=== PATIENT | female | born 1995 | race Caucasian/White ===

== ENCOUNTER 2025-04-03 15:49 | Emergency (ER) | payer BC ==
[~2025-04-03] VITALS: Ht 156.2 cm; Wt 89.5 kg
[2025-04-03 16:01] VITALS: BP 118/71; TEMP 98.4
--- NOTE | 2025-04-03 16:50 | Physician Documentation ---
History of Present Illness ~ Chief Complaint: Jaw Pain Stated Complaint: JAW PAIN Time Seen by MD: 17:58 HPI 30-year-old female presents with Tmj exacerbation. States she was seen by her ENT and prescribed Valium without much improvement. States for the last week she has had pain on the left side difficulty with range of motion. Medication Reconciliation Allergies: Coded Allergies: gabapentin (Unverified Allergy, Unknown, 04/03/25) ibuprofen (Unverified Allergy, Unknown, 04/03/25) meloxicam (Unverified Allergy, Unknown, 04/03/25) Review of Systems All Other Systems at this time: Reviewed and Negative ROS As stated above in the HPI, otherwise all systems are reviewed and negative. Physical Exam Vital Signs: Temperature: 98.4, Source: Temporal, Heart Rate: 88, Respiratory Rate: 18, BP: 118/71, Pulse Oximetry: 99, Weight: 89.500 Oxygen Flow Rate: 0 Physical Exam General: Alert, no apparent distress. HEENT: PERRL, EOMI, no injection, moist mucous membranes. Difficulty with range of motion of the jaw, moderate swelling Neck: Full range of motion. Neurologic: Oriented x4. Psychiatric: Normal mood and affect. Skin: Normal color, warm and dry. No edema, no ecchymosis. Progress Results/Orders Results/Orders Completed Orders - KAREN WU [employer]OUNT EXECUTIVE Morphine 4mg/Ml Inj. (Morphine Inj.) (04/03/25 18:15) Dexamethasone 6mg Tablet (Dexamethasone (04/03/25 18:16) Dexamethasone Tablet (Decadron Tablet) (04/03/25 18:16) Medications Received in ER Medications (Trade) Dose Ordered Sig/Jose Route PRN Reason Start Time Stop Time Status Last Admin Dose Admin (morphine inj.) 4 mg ONCE ONCE IM 04/03/25 18:15 04/03/25 18:17 DC 04/03/25 18:23 4 MG (Dexamethasone 6mg tablet) 6 mg ONCE STAT PO 04/03/25 18:16 04/03/25 18:17 DC 04/03/25 18:23 6 MG (Decadron tablet) 4 mg ONCE STAT PO 04/03/25 18:16 04/03/25 18:17 DC 04/03/25 18:23 4 MG Vital Signs 04/03/25 04/03/25 16:01 18:23 Temp 98.4 Pulse 88 Resp 18 16 B/P (MAP) 118/71 Pulse Ox 99 O2 Flow Rate 0 Medical Decision Making Findings treating pt With a corticosteroids and and pain med. advising patient to follow up with her ENT for further evaluation Differential Dx:Considerations: Include: Abrasion, Contusion, Cerebral contusion, Cervical spine injury, Closed head injury, Encephalopathy, Foreign b demetrius, Fracture, facial, Intoxication-alcohol, Intoxication-other drug, Laceration, Other Departure Disposition: HOME / SELF CARE / HOMELESS Impression: Primary Impression: Jaw pain Condition: Stable Additional Instructions: follow up with your ENT for further eval of TMJ Referrals: NO PRIMARY CARE PROVIDER (PCP) Additional Comment Medical Screen Exam History: This is a 30-year-old female who presents with bilateral jaw pain, patient has been diagnosed by ENT with severe TMJ in his awaiting specialist for Botox injections. Patient reports the pain is unbearable and is not responding to muscle relaxers prescribed by ENT. Exam: VITALS: Reviewed and as above. GENERAL: Alert, nontoxic appearing, no apparent distress. RESPIRATORY: No increased work of breathing, no respiratory distress, speaking in full clear sentences MSE performed in triage and patient returned to ED lobby by nursing staff to await available ED room The note accurately reflects work and decisions made by me.ISSA Barbour 04/03/25 16:50 Signature Scribe Signature: f Attestation: Scribed for Karen Wu Np by Karen Luis NP . 04/03/25 18:19 DIANDRA POWELL Apr 03, 2025 16:50 KAREN WU NP Apr 03, 2025 18:19
[2025-04-03] MEDS ORDERED: dexamethasone sod phosphate 10mg/ml inj PO STA (18:12)
[2025-04-03] MEDS: DEXAMETHASONE 6 MG TABLET PO STA (18:23)
[2025-04-03] MEDS: morphine 4 MG/ML inj SYRINge IM ONE (18:23)
[2025-04-03] MEDS: dexamethasone 4mg tablet PO STA (18:23)
[2025-04-03 19:37] VITALS: PULSE 72; RESP 15; O2SAT 97
== END 2025-04-03 19:39 | disposition home or self-care (01) ==
LOC: ER 15:50
DX: R68.84 Jaw pain (principal); Z88.6 Allergy status to analgesic agent; Z88.8 Allergy status to other drugs, medicaments and biological substances
CPT/HCPCS: 96372; 99283; J2270; J8540